=== PATIENT | male | born 1980 | race Caucasian/White ===

== ENCOUNTER 2021-06-27 13:48 | Emergency (ER) | payer MEDICAID, SELFPAY ==
[2021-06-27 13:54] VITALS: BP 150/111; PULSE 117; RESP 18; TEMP 36.7; O2SAT 98; BMI 19.5
--- NOTE | 2021-06-27 14:31 | ED_ITS ---
HPI - Alcohol General Chief Complaint: ETOH/Substance Use Stated Complaint: detox Time Seen by Provider: 06/27/21 14:21 Source: patient Mode of arrival: ambulatory Limitations: no limitations History of Present Illness HPI narrative: Patient is a 40-year-old male with a history of hepatitis-C and alcohol abuse presenting to the emergency department requesting detox from alcohol. States that he consumes a 0.5 gal of vodka every 2-3 days. States he additionally smokes marijuana and ingests mushrooms. States that he last consumed alcohol just prior to arriving to the emergency department, and has alcohol on him at this time. He reports ?my body is shutting down?. He states last week he was evaluated at [facility] and stayed there for 5 days until he was ?kicked out?. He reports a history of withdrawal seizures in the past, for which she did not seek any medical attention for. Upon speaking with patient he endorses suicidal ideations and homicidal ideations. He does not endorse any specific plans, does not endorse a history of suicidal attempts in the past. Denies fevers, chills, nasal congestion, sore throat, neck pain, chest pain, palpitations, shortness of breath, dyspnea on exertion, pedal edema, nausea, vomiting, abdominal pain, bloody-dark stools, dysuria, urinary frequency, myalgias, or arthralgias. MD complaint: alcohol intoxication Last drink: Just prior to admission Amount of alcohol consumed: Unknown Chronic alcohol use: Yes Recent trauma: No Associated symptoms: denies other symptoms Treatments prior to arrival: none Related Data Home Medications Medication Instructions Recorded Confirmed folic acid 1 mg tablet 1 mg PO DAILY 06/27/21 06/27/21 lamotrigine 25 mg tablet 25 mg PO DAILY 06/27/21 06/27/21 nicotine 21 mg/24 hr daily 1 patch TOPICAL DAILY 06/27/21 06/27/21 transdermal patch ondansetron 4 mg disintegrating 4 mg PO Q6H PRN 06/27/21 06/27/21 tablet pantoprazole 40 mg tablet,delayed 40 mg PO DAILY 06/27/21 06/27/21 release propranolol 20 mg tablet 20 mg PO DAILY PRN 06/27/21 06/27/21 thiamine HCl (vitamin B1) 100 mg 200 mg DAILY 06/27/21 06/27/21 tablet (Vitamin B-1) Allergies Allergy/AdvReac Type Severity Reaction Status Date / Time No Known Allergies Allergy Verified 06/27/21 14:36 Review of Systems Review of Systems: Constitutional: No weight loss, fever, chills, weakness or fatigue. HEENT: No visual loss, blurred vision, double vision or yellow sclera. No hearing loss, sneezing, congestion, runny nose or sore throat. Skin: No rash or itching. Cardiovascular: No chest pain, chest pressure or chest discomfort. No palpitations or pedal edema. Respiratory: No shortness of breath, cough or sputum production. Gastrointestinal: No anorexia, nausea, vomiting or diarrhea. No abdominal pain or blood in stool. Genitourinary: No burning micturition. No urinary frequency or incontinence. Neurologic: No headache, dizziness, syncope, unilateral weakness, ataxia, numbness or tingling in the extremities. No change in bowel or bladder control. Musculoskeletal: No muscle pain, back pain, joint pain or stiffness. Hematologic: No bleeding or bruising. Lymphatics: No enlarged lymph nodes. Psychiatric + suicidal and homicidal ideations Endocrine: No polyuria or polydipsia. [facility] Past Medical History Attestation statement: The following information was validated with the patient. Source: old records reviewed Medical History Hepatitis C Social History Social History Alcohol intake: current Alcohol intake frequency: 3 or more drinks per day Alcohol type: hard liquor Patient Tobacco Use Status: Current everyday Tobacco user Smoked in Last 30 Days: Yes Use of substances other than those prescribed or required for medical reasons: Yes Substance Use Type: Hallucinogens and Marijuana Advance Directives: No Advance Directives Information Provided: No Physical Exam Vital Signs: Vital Signs: Last Vital Signs Temp 98.0 F 06/27/21 13:54 Pulse 89 06/27/21 15:54 Resp 18 06/27/21 13:54 BP 137/85 06/27/21 15:54 Pulse Ox 98 06/27/21 15:54 BMI result Body Mass Index 19.5 Vital signs have been reviewed and appeared to be correct. Blood pressure initially elevated 150/111. Heart rate initially elevated 117.? Respiration rate normal. Temperature normal.? Oxygen saturation normal. Appearance: Alert.?Oriented to person, place and time. No acute distress.? Appears disheveled and intoxicated. Eyes: Pupils equal, round and reactive to light.? ENT: Pharynx normal.?? Neck: Normal inspection.? Neck supple.?? CVS: Heart sounds normal. Normal heart rate and rhythm.? Pulses normal.?? Respiratory: No respiratory distress.? Lung sounds clear to auscultation bilaterally?? Abdomen: Soft and non-tender. Normoactive bowel sounds. ? Skin: Skin warm and dry.? Normal skin color.? ? Extremities: No lower extremity edema.? Neuro: Moves all extremities spontaneously. Sensation intact bilaterally. No focal neuro deficits. Ambulates with normal steady gait. Course Course Course Narrative: Patient is a 40-year-old male requesting detox from alcohol was also endorsing suicidal and homicidal ideations. Will obtain basic labs including CBC and CMP, in addition to urine drug screen, serum ethanol, and CIWA scale. Patient currently in emergency minor care and will be transferred to the Behavioral Health pod as he will eventually require evaluation from crisis. Security called to bedside and patient was changed into appropriate behavior Health attire with his belongings inventory. Safety checks will be every 15 minutes. Currently, he has no complaints of pain, discomfort, or recent illness. I suspect his hypertension and tachycardia are secondary to his alcohol abuse. Reevaluation(s) Reevaluation #1: Received message from nursing staff reporting patient complaining of severe anxiety, is agitated and restless, requesting medication to help. Ativan 1 mg p.o. ordered. Patient will be closely monitored, his urine drug screening is positive for barbiturates and marijuana, ethanol level at 15:40 was 364. CBC indicates mild anemia with hemoglobin 13.2 and hematocrit 38.4, he is asymptomatic. His AST and ALT are elevated at 159 and 186 respectively, he is without right upper quadrant pain or tenderness on palpation and has no nausea vomiting, I suspect that this is secondary to his alcohol consumption, he reported that he was recently evaluated at another local hospital will try and obtain these records for comparison, otherwise will plan for repeat labs to be obtained 6 hours after initial. Time: 16:00 Reevaluation #2: Patient placed in position observation at this time. He was placed in physician observation as he is pending evaluation by crisis team as he had endorsed suicidal and homicidal ideations, and may need placement for inpatient psychiatric care. Patient in no apparent distress. Respirations even, irregular, and non-labored. No focal neuro deficits. Vital signs stable. Will continue to monitor. Time: 18:17 Reevaluation #3: Physician observation continues, Patient signed out to [facility], pending evaluation by crisis and repeat LFT's. Time: 18:49 MDM - Alcohol Lab Data Result diagrams: 06/27/21 15:40 06/27/21 15:40 Labs: Lab Results 06/27/21 06/27/21 06/27/21 Range/Units 15:17 15:17 15:40 WBC 4.7 L (4.8-10.8) X10*3/uL RBC 4.04 L (4.60-5.80) X10*6/uL Hgb 13.2 L (14.0-18.0) g/dl Hct 38.4 L (42.0-52.0) % MCV 95.0 (80.0-98.0) fL MCH 32.7 (27.0-33.0) pg MCHC 34.4 (31.0-36.0) g/dl RDW 12.6 (11.0-16.0) % Plt Count 181 (160-400) X10*3/uL MPV 8.7 L (9.4-12.4) fL Immature Gran % (Auto) 0.2 (0.0-0.4) % Neut % (Auto) 37.4 L (45-73) % Lymph % (Auto) 45.6 H (20-40) % [place] % (Auto) 14.9 H (2-11) % Eos % (Auto) 0.4 (0-4) % Baso % (Auto) 1.5 (0-2) % Lymph # (Auto) 2.1 (1.2-4.9) X10*3/uL [place] # (Auto) 0.7 (0.1-1.2) X10*3/uL Eos # (Auto) 0.0 (0.0-0.4) X10*3/uL Baso # (Auto) 0.1 (0.0-0.2) X10*3/uL Abs Immat Gran (auto) 0.01 (0.00-0.03) X10*3/uL Absolute Neuts (auto) 1.8 L (2.0-8.3) x10*3/uL Absolute Nucleated RBC 0.000 (0.0-0.012) X10*3/uL Nucleated RBC % (auto) 0.0 (0.0-0.2) /100WBC Sodium (135-145) mmol/L Potassium (3.3-5.1) mmol/L Chloride (96-108) mmol/L Carbon Dioxide (22-29) mmol/L Anion Gap (12-20) BUN (9-16) mg/dL Creatinine (0.5-1.4) mg/dL Estim Creat Clear Calc Estimated GFR Random Glucose (60-115) mg/dL Calcium (8.4-10.2) mg/dL Total Bilirubin (0.0-1.0) mg/dL AST (5-37) U/L ALT (0-40) U/L Alkaline Phosphatase (39-117) U/L Total Protein (6.5-8.0) g/dL Albumin (3.5-5.0) g/dL Urine Opiates Screen Not Detected (Not Detect) Urine Fentanyl Screen Not Detected (Not Detect) Ur Barbiturates Screen POSITIVE H (Not Detect) Ur Phencyclidine Scrn Not Detected (Not Detect) Ur Amphetamines Screen Not Detected (Not Detect) U Benzodiazepines Scrn Not Detected (Not Detect) Urine Cocaine Screen Not Detected (Not Detect) U Marijuana (THC) Screen POSITIVE H (Not Detect) Ethyl Alcohol mg/dL COVID-19 (ARELI) Negative (Negative) COVID-19 Clin Com See Note 06/27/21 06/27/21 Range/Units 15:40 15:40 WBC (4.8-10.8) X10*3/uL RBC (4.60-5.80) X10*6/uL Hgb (14.0-18.0) g/dl Hct (42.0-52.0) % MCV (80.0-98.0) fL MCH (27.0-33.0) pg MCHC (31.0-36.0) g/dl RDW (11.0-16.0) % Plt Count (160-400) X10*3/uL MPV (9.4-12.4) fL Immature Gran % (Auto) (0.0-0.4) % Neut % (Auto) (45-73) % Lymph % (Auto) (20-40) % [place] % (Auto) (2-11) % Eos % (Auto) (0-4) % Baso % (Auto) (0-2) % Lymph # (Auto) (1.2-4.9) X10*3/uL [place] # (Auto) (0.1-1.2) X10*3/uL Eos # (Auto) (0.0-0.4) X10*3/uL Baso # (Auto) (0.0-0.2) X10*3/uL Abs Immat Gran (auto) (0.00-0.03) X10*3/uL Absolute Neuts (auto) (2.0-8.3) x10*3/uL Absolute Nucleated RBC (0.0-0.012) X10*3/uL Nucleated RBC % (auto) (0.0-0.2) /100WBC Sodium 140 (135-145) mmol/L Potassium 3.9 (3.3-5.1) mmol/L Chloride 99 (96-108) mmol/L Carbon Dioxide 26 (22-29) mmol/L Anion Gap 19 (12-20) BUN 8 L (9-16) mg/dL Creatinine 0.73 (0.5-1.4) mg/dL Estim Creat Clear Calc 122.0 Estimated GFR > 60 Random Glucose 96 (60-115) mg/dL Calcium 9.2 (8.4-10.2) mg/dL Total Bilirubin 0.6 (0.0-1.0) mg/dL AST 159 H (5-37) U/L ALT 186 H (0-40) U/L Alkaline Phosphatase 66 (39-117) U/L Total Protein 8.6 H (6.5-8.0) g/dL Albumin 4.6 (3.5-5.0) g/dL Urine Opiates Screen (Not Detect) Urine Fentanyl Screen (Not Detect) Ur Barbiturates Screen (Not Detect) Ur Phencyclidine Scrn (Not Detect) Ur Amphetamines Screen (Not Detect) U Benzodiazepines Scrn (Not Detect) Urine Cocaine Screen (Not Detect) U Marijuana (THC) Screen (Not Detect) Ethyl Alcohol 364 H* mg/dL COVID-19 (ARELI) (Negative) COVID-19 Clin Com Discharge Plan Discharge Clinical Impression: Alcoholic intoxication, Suicidal ideations, Homicidal ideations Patient Disposition: Still a Patient Prescriptions: No Action thiamine HCl (vitamin B1) [Vitamin B-1] 100 mg Tablet 200 mg DAILY 0RF lamotrigine 25 mg Tablet 25 mg PO DAILY 0RF pantoprazole 40 mg Tablet,Delayed Release (Dr/Ec) 40 mg PO DAILY 0RF nicotine 21 mg/24 hr Patch 24 Hour 1 patch topical DAILY 0RF folic acid 1 mg Tablet 1 mg PO DAILY 0RF propranolol 20 mg Tablet 20 mg PO DAILY PRN (Reason: Increased Heart Rate) 0RF ondansetron 4 mg Tablet,Disintegrating 4 mg PO Q6H PRN (Reason: Nausea) 0RF Label Comments: bottle empty quantity 6
[2021-06-27 15:47] LABS: MANUAL DIFF FLAG NO
[2021-06-27 15:48] LABS: COVID-19 Test Negative (Negative); IDNOW Serial# 55D5AD1C
[2021-06-27 15:54] VITALS: BP 137/85; PULSE 89; O2SAT 98
[2021-06-27 15:56] LABS: Basophils Absolute Auto 0.1 X10*3/uL (0.0-0.2); Basophils Percent Auto 1.5 % (0-2); Eosinophils Percent Auto 0.4 % (0-4); Hematocrit 38.4 % (42.0-52.0); Hemoglobin 13.2 g/dl (14.0-18.0); Imm Gran Abs Auto 0.01 X10*3/uL (0.00-0.03); Imm Gran Pct Auto 0.2 % (0.0-0.4); Lymphocytes Absolute Auto 2.1 X10*3/uL (1.2-4.9); Lymphocytes Percent Auto 45.6 % (20-40); Mean Corpuscular HGB Conc 34.4 g/dl (31.0-36.0); Mean Corpuscular Hemoglobin 32.7 pg (27.0-33.0); Mean Platelet Volume 8.7 fL (9.4-12.4); Monocytes Absolute Auto 0.7 X10*3/uL (0.1-1.2); Monocytes Percent Auto 14.9 % (2-11); Neutrophils Absolute Auto 1.8 x10*3/uL (2.0-8.3); Neutrophils Percent Auto 37.4 % (45-73); Platelet Count 181 X10*3/uL (160-400); Red Blood Count 4.04 X10*6/uL (4.60-5.80); Red Cell Distribution Width 12.6 % (11.0-16.0); White Blood Count 4.7 X10*3/uL (4.8-10.8)
[2021-06-27 16:09] LABS: Amphetamine Screen Urine Not Detected (Not Detect); Barbiturates, Urine POSITIVE (Not Detect); Benzodiazepines Screen Urine Not Detected (Not Detect); Cannabinoid Screen Urine POSITIVE (Not Detect); Cocaine Screen Urine Not Detected (Not Detect); Fentanyl, urine Not Detected (Not Detect); Opiate Screen Urine Not Detected (Not Detect); Phencyclidine Screen Urine Not Detected (Not Detect)
[2021-06-27 16:09] LABS: Ethanol 364 mg/dL
[2021-06-27 16:12] LABS: Alanine Aminotransferase 186 U/L (0-40); Albumin Level 4.6 g/dL (3.5-5.0); Alkaline Phosphatase 66 U/L (39-117); Anion Gap 19 (12-20); Aspartate Amino Transferase 159 U/L (5-37); Bilirubin Total 0.6 mg/dL (0.0-1.0); Blood Urea Nitrogen 8 mg/dL (9-16); Calcium 9.2 mg/dL (8.4-10.2); Carbon Dioxide 26 mmol/L (22-29); Chloride 99 mmol/L (96-108); Estimated Glomerular Filt Rate > 60; Glucose Random 96 mg/dL (60-115); Potassium 3.9 mmol/L (3.3-5.1); Sodium 140 mmol/L (135-145); Total Protein 8.6 g/dL (6.5-8.0)
[2021-06-27] MEDS: LORazepam 1 MG TABLET PO (16:15)
--- NOTE | 2021-06-27 17:17 | PHA.MEDREC ---
Pharmacy Consult ? Medication Reconciliation Nursing has completed the medication reconciliation with the patients medication bottles, pharmacy has reviewed.
[2021-06-27] MEDS: Nicotine 14 MG PATCH.TD24 TRANSDERMA (20:32)
[2021-06-27] MEDS: LORazepam 1 MG TABLET 2 MG PO (21:36)
[2021-06-27 21:38] VITALS: BP 114/74; PULSE 88
[2021-06-27 22:18] LABS: Alanine Aminotransferase 172 U/L (0-40); Albumin Level 4.5 g/dL (3.5-5.0); Alkaline Phosphatase 62 U/L (39-117); Aspartate Amino Transferase 139 U/L (5-37); Bilirubin Direct 0.3 mg/dL (0.0-0.5); Bilirubin Total 0.6 mg/dL (0.0-1.0); Total Protein 8.1 g/dL (6.5-8.0)
[2021-06-28 02:50] VITALS: BP 138/88; PULSE 106; RESP 20; TEMP 37.2; O2SAT 98
--- NOTE | 2021-06-28 05:58 | PC.NURSE ---
Patient slept through the night, no distress observed/reported, [facility] assessed the patient, disposition is detox bed search, patient will be cabbed to [facility] in the at 0715, asymptomatic of withdrawal, vss, will continue to monitor.
[2021-06-28] MEDS: LORazepam 1 MG TABLET 2 MG PO (06:04)
== END 2021-06-28 07:15 | disposition home or self-care (01) ==
PROVIDERS: Nurse Practitioner Family; Emergency Provider Emergency Medicine Emergency Medical Services; PCP Family Medicine
DX: F10.129 Alcohol abuse with intoxication, unspecified (principal); Y90.8 Blood alcohol level of 240 mg/100 ml or more; R45.851 Suicidal ideations; R45.850 Homicidal ideations; F17.200 Nicotine dependence, unspecified, uncomplicated; Z20.822 Contact with and (suspected) exposure to COVID-19; Z71.6 Tobacco abuse counseling; Z79.899 Other long term (current) drug therapy; Z71.41 Alcohol abuse counseling and surveillance of alcoholic
CPT/HCPCS: 36415; 80053; 80076; 80307; 82077; 85025; 87635; 99285